=== PATIENT | female | born 1940 | race Caucasian/White ===

== ENCOUNTER 2016-08-30 16:45 | Inpatient (IN) | payer MEDICARE, OTHER ==
[~2016-08-30] VITALS: Ht 154.9 cm; Wt 68.1 kg
[2016-08-30 16:45] VITALS: BP 133/81
[2016-08-30] MEDS ORDERED: ONDANSETRON ODT 4 MG PO PRN (18:30)
[2016-08-30] MEDS ORDERED: ONDANSETRON 2MG/ML, 2ML IVPush PRN (18:30)
[2016-08-30] MEDS ORDERED: ACETAMINOPHEN 325 MG TABLET PO PRN (18:30)
[2016-08-30] MEDS ORDERED: LABETALOL 5MG/ML, 20ML IVPush PRN (18:30)
[2016-08-30] MEDS ORDERED: DOCUSATE 100 MG CAPSULE PO PRN (18:30)
[2016-08-30] MEDS ORDERED: ALBUTEROL/IPRATROPIUM 2.5MG/0.5MG, 3 ML NEB PRN (18:30)
[2016-08-30 18:59] VITALS: BP 125/72
[2016-08-30 19:49] LABS: ASPARTATE AMINO TRANSFERASE 27 U/L (15-37); BLOOD UREA NITROGEN 13 mg/dL (7-18)
[2016-08-30 20:19] LABS: DIFF TOTAL CELLS COUNTED 100 CELL DIFF
[2016-08-30 20:21] LABS: VERIFY COUNTS? YES
[2016-08-30 20:23] LABS: ANISOCYTOSIS 1+; POLYCHROMASIA 1+
[2016-08-30] MEDS: MEROPENEM 1 GM in SODIUM CHLORIDE 0.9% 100 ML IV SCH (22:03)
[2016-08-30] MEDS: HYDROcodone/APAP 5/325 TABLET PO PRN (22:13)
[2016-08-31] VITALS (7 sets, daily range): BP systolic 108–127; BP diastolic 56–77
[2016-08-31] MEDS: MEROPENEM 1 GM in SODIUM CHLORIDE 0.9% 100 ML IV SCH ×3 (05:36→22:11)
[2016-08-31] MEDS: CARVEDILOL 6.25 MG TABLET PO SCH ×2 (05:49→18:30)
[2016-08-31 06:10] LABS: ASPARTATE AMINO TRANSFERASE 25 U/L (15-37); BLOOD UREA NITROGEN 15 mg/dL (7-18)
[2016-08-31 07:23] LABS: DIFF TOTAL CELLS COUNTED 100 CELL DIFF
[2016-08-31 07:26] LABS: ANISOCYTOSIS 1+; POLYCHROMASIA 1+
[2016-08-31 07:27] LABS: VERIFY COUNTS? YES
[2016-08-31] MEDS ORDERED: MAGNESIUM SULFATE PMX 4GM/100M 100 ML IV ONE (08:00)
[2016-08-31] MEDS: TRIAMTERENE-HCTZ 37.5/25 MG TABLET PO SCH (10:48)
[2016-08-31] MEDS: FLUTICASONE/VILANTEROL 100-25MCG/INH INH SCH (10:48)
[2016-08-31] MEDS ORDERED: EVACUATED CONTAINER IVPB ONE (20:30)
[2016-08-31] MEDS ORDERED: IMMUNE GLOBULIN IVPB ONE (20:30)
[2016-08-31] MEDS: HYDROcodone/APAP 5/325 TABLET PO PRN (20:53)
[2016-09-01] VITALS (11 sets, daily range): BP systolic 107–146; BP diastolic 61–80
[2016-09-01] MEDS: HYDROcodone/APAP 5/325 TABLET PO PRN ×2 (03:17→20:12)
[2016-09-01] MEDS: CARVEDILOL 6.25 MG TABLET PO SCH ×2 (05:19→20:12)
[2016-09-01] MEDS: MEROPENEM 1 GM in SODIUM CHLORIDE 0.9% 100 ML IV SCH ×2 (05:19→16:43)
[2016-09-01 06:32] LABS: BLOOD UREA NITROGEN 14 mg/dL (7-18)
[2016-09-01 07:15] LABS: DIFF TOTAL CELLS COUNTED 100 CELL DIFF
[2016-09-01 07:17] LABS: ANISOCYTOSIS 1+; POLYCHROMASIA 1+; VERIFY COUNTS? YES
[2016-09-01] MEDS ORDERED: MAGNESIUM SULFATE PMX 4GM/100M 100 ML IV ONE (08:30)
[2016-09-01] MEDS: TRIAMTERENE-HCTZ 37.5/25 MG TABLET PO SCH (11:03)
[2016-09-01] MEDS: POTASSIUM CHLORIDE 20 MEQ TAB.ER.PRT PO SCH ×2 (11:03→16:49)
[2016-09-01] MEDS: FLUTICASONE/VILANTEROL 100-25MCG/INH INH SCH (11:04)
[2016-09-01] MEDS: FERROUS SULFATE 325 MG TABLET PO SCH ×2 (16:49→20:12)
[2016-09-01 17:32] LABS: DIFF TOTAL CELLS COUNTED 100 CELL DIFF
[2016-09-01 17:39] LABS: ANISOCYTOSIS 1+; POLYCHROMASIA 1+
[2016-09-01 17:40] LABS: VERIFY COUNTS? YES
[2016-09-02] VITALS (9 sets, daily range): BP systolic 115–146; BP diastolic 70–82
[2016-09-02] MEDS: MEROPENEM 1 GM in SODIUM CHLORIDE 0.9% 100 ML IV SCH ×3 (00:48→16:51)
[2016-09-02] MEDS: HYDROcodone/APAP 5/325 TABLET PO PRN ×2 (01:36→21:41)
[2016-09-02] MEDS: CARVEDILOL 6.25 MG TABLET PO SCH ×2 (06:13→18:31)
[2016-09-02 06:54] LABS: BLOOD UREA NITROGEN 16 mg/dL (7-18)
[2016-09-02] MEDS: TRIAMTERENE-HCTZ 37.5/25 MG TABLET PO SCH (09:11)
[2016-09-02] MEDS: FERROUS SULFATE 325 MG TABLET PO SCH ×3 (09:11→21:41)
[2016-09-02] MEDS: FLUTICASONE/VILANTEROL 100-25MCG/INH INH SCH (09:11)
[2016-09-02] MEDS: morphine SULFATE 10 MG/ML, 1ML IVPush PRN (11:35)
[2016-09-02 14:56] LABS: DIFF TOTAL CELLS COUNTED 100 CELL DIFF
[2016-09-02 15:38] LABS: ANISOCYTOSIS 1+; POLYCHROMASIA 1+; VERIFY COUNTS? YES
[2016-09-02] MEDS: PANTOPROZOLE 40MG TABLET PO SCH (16:51)
[2016-09-02] MEDS ORDERED: OMNIPAQUE 350 MG/ML, 100ML BOTTLE ONE (21:43)
[2016-09-03] VITALS (8 sets, daily range): BP systolic 108–130; BP diastolic 60–92
[2016-09-03] MEDS: MEROPENEM 1 GM in SODIUM CHLORIDE 0.9% 100 ML IV SCH ×3 (00:36→20:14)
[2016-09-03 04:52] LABS: BLOOD UREA NITROGEN 16 mg/dL (7-18)
[2016-09-03 05:41] LABS: DIFF TOTAL CELLS COUNTED 100 CELL DIFF
[2016-09-03 05:46] LABS: ANISOCYTOSIS 1+; VERIFY COUNTS? YES
[2016-09-03 05:47] LABS: POLYCHROMASIA 1+
[2016-09-03] MEDS: CARVEDILOL 6.25 MG TABLET PO SCH ×2 (06:00→17:24)
[2016-09-03] MEDS ORDERED: EVACUATED CONTAINER IVPB ONE (07:00)
[2016-09-03] MEDS ORDERED: IMMUNE GLOBULIN IVPB ONE (07:00)
[2016-09-03 07:29] LABS: DIFF TOTAL CELLS COUNTED 200 CELL DIFF; VERIFY COUNTS? YES
[2016-09-03 07:31] LABS: ANISOCYTOSIS 1+; POLYCHROMASIA 1+
[2016-09-03] MEDS: PANTOPROZOLE 40MG TABLET PO SCH (08:31)
[2016-09-03] MEDS: FLUTICASONE/VILANTEROL 100-25MCG/INH INH SCH (08:31)
[2016-09-03] MEDS: FERROUS SULFATE 325 MG TABLET PO SCH ×3 (08:31→20:14)
[2016-09-03] MEDS: DEXAMETHASONE 4 MG TABLET PO SCH (08:31)
[2016-09-03] MEDS: TRIAMTERENE-HCTZ 37.5/25 MG TABLET PO SCH (08:31)
[2016-09-03] MEDS ORDERED: LIDOCAINE 1%, 20ML ONE (08:59)
[2016-09-03] MEDS ORDERED: FENTANYL PF 100 MCG/2ML ONE ×2 (09:03→13:08)
[2016-09-03] MEDS ORDERED: MIDAZOLAM 1 MG/ML, 5ML ONE ×2 (09:03→13:08)
[2016-09-03] MEDS ORDERED: FLUMAZENIL 0.1 MG/1 ML, 5ML ONE (09:04)
[2016-09-03] MEDS ORDERED: NALOXONE 1 MG/ML, 2ML ONE (09:04)
[2016-09-03 13:06] LABS: ANA DIRECT Negative (Negative); COMPLEMENT C3 200 mg/dL (82-167); COMPLEMENT C4 22 mg/dL (14-44); INTERMYOFIBRILLAR AB Negative (Neg:<1:20); MITOCHONDRIAL (M2) AB 7.4 Units (0.0-20.0); PARIETAL CELL AB 5.3 Units (0.0-20.0); RA LATEX TURBIDITY <10.0 IU/mL (0.0-13.9); SARCOLEMMA AB Negative (Neg:<1:20); SJOGREN'S SS-A AB <0.2 AI (0.0-0.9); STRIATION AB Negative (Neg:<1:40); THYROID PEROXIDASE (TPO) AB 15 IU/mL (0-34)
[2016-09-03] MEDS: HYDROcodone/APAP 5/325 TABLET PO PRN (20:18)
[2016-09-04 00:01] VITALS: BP 124/74
[2016-09-04] MEDS: HYDROcodone/APAP 5/325 TABLET PO PRN ×2 (00:24→20:10)
[2016-09-04] MEDS: MEROPENEM 1 GM in SODIUM CHLORIDE 0.9% 100 ML IV SCH ×3 (04:20→20:11)
[2016-09-04 05:00] LABS: BLOOD UREA NITROGEN 25 mg/dL (7-18)
[2016-09-04] MEDS: CARVEDILOL 6.25 MG TABLET PO SCH ×2 (05:30→16:54)
[2016-09-04 05:37] LABS: DIFF TOTAL CELLS COUNTED 100 CELL DIFF
[2016-09-04 05:41] LABS: ANISOCYTOSIS 1+; POLYCHROMASIA 1+; VERIFY COUNTS? YES
[2016-09-04 07:34] VITALS: BP 122/69
[2016-09-04] MEDS: SODIUM CHLORIDE 0.9% 1,000 ML IV SCH ×2 (08:29→20:14)
[2016-09-04] MEDS: PANTOPROZOLE 40MG TABLET PO SCH (08:30)
[2016-09-04] MEDS: FLUTICASONE/VILANTEROL 100-25MCG/INH INH SCH (08:30)
[2016-09-04] MEDS: DEXAMETHASONE 4 MG TABLET PO SCH (08:31)
[2016-09-04] MEDS: TRIAMTERENE-HCTZ 37.5/25 MG TABLET PO SCH (08:31)
[2016-09-04] MEDS: FERROUS SULFATE 325 MG TABLET PO SCH ×3 (08:31→20:10)
[2016-09-04 13:45] VITALS: BP 125/71
[2016-09-04] MEDS: morphine SULFATE 10 MG/ML, 1ML IVPush PRN (14:20)
[2016-09-04 20:17] VITALS: BP 130/74
[2016-09-05] VITALS (9 sets, daily range): BP systolic 114–129; BP diastolic 64–74
[2016-09-05] MEDS: HYDROcodone/APAP 5/325 TABLET PO PRN ×2 (00:51→23:12)
[2016-09-05 01:56] LABS: OCCBLD OBC PASS
[2016-09-05] MEDS: MEROPENEM 1 GM in SODIUM CHLORIDE 0.9% 100 ML IV SCH ×3 (03:30→21:08)
[2016-09-05 03:51] LABS: BLOOD UREA NITROGEN 27 mg/dL (7-18)
[2016-09-05 04:26] LABS: DIFF TOTAL CELLS COUNTED 100 CELL DIFF
[2016-09-05 04:28] LABS: ANISOCYTOSIS 1+; MICROCYTOSIS 1+; POLYCHROMASIA 1+
[2016-09-05 04:29] LABS: LARGE PLATELETS 1+; VERIFY COUNTS? YES
[2016-09-05] MEDS: CARVEDILOL 6.25 MG TABLET PO SCH ×2 (06:00→19:04)
[2016-09-05] MEDS: PANTOPROZOLE 40MG TABLET PO SCH (08:04)
[2016-09-05] MEDS: TRIAMTERENE-HCTZ 37.5/25 MG TABLET PO SCH (09:00)
[2016-09-05] MEDS: DEXAMETHASONE 4 MG TABLET PO SCH (09:00)
[2016-09-05] MEDS: FERROUS SULFATE 325 MG TABLET PO SCH ×3 (09:00→21:08)
[2016-09-05] MEDS ORDERED: ACETAMINOPHEN 325 MG TABLET PO ONE (09:30)
[2016-09-05] MEDS ORDERED: DIPHENHYDRAMINE 25 MG CAPSULE PO ONE (09:30)
[2016-09-05] MEDS: FLUTICASONE/VILANTEROL 100-25MCG/INH INH SCH (10:55)
[2016-09-05] MEDS: morphine SULFATE 10 MG/ML, 1ML IVPush PRN (13:10)
[2016-09-05] MEDS ORDERED: FENTANYL PF 100 MCG/2ML ONE (14:38)
[2016-09-05] MEDS ORDERED: LIDOCAINE 2%, 20ML ONE (14:38)
[2016-09-05] MEDS ORDERED: NALOXONE 1 MG/ML, 2ML ONE (14:39)
[2016-09-05] MEDS: SODIUM CHLORIDE 0.9% 1,000 ML IV SCH (15:00)
[2016-09-05] MEDS ORDERED: MIDAZOLAM 1 MG/ML, 5ML ONE (15:16)
[2016-09-06 02:20] VITALS: BP 126/65
[2016-09-06] MEDS: HYDROcodone/APAP 5/325 TABLET PO PRN (04:03)
[2016-09-06] MEDS: CARVEDILOL 6.25 MG TABLET PO SCH ×2 (05:22→18:13)
[2016-09-06] MEDS: MEROPENEM 1 GM in SODIUM CHLORIDE 0.9% 100 ML IV SCH ×3 (05:23→22:30)
[2016-09-06 05:55] LABS: BLOOD UREA NITROGEN 33 mg/dL (7-18)
[2016-09-06 05:58] LABS: ASPARTATE AMINO TRANSFERASE 98 U/L (15-37)
[2016-09-06 06:23] LABS: DIFF TOTAL CELLS COUNTED 100 CELL DIFF
[2016-09-06 06:24] LABS: ANISOCYTOSIS 1+; VERIFY COUNTS? YES
[2016-09-06 06:25] LABS: LARGE PLATELETS 1+; POLYCHROMASIA 1+
[2016-09-06 07:52] VITALS: BP 111/70
[2016-09-06] MEDS: FERROUS SULFATE 325 MG TABLET PO SCH ×3 (09:20→22:30)
[2016-09-06] MEDS: FLUTICASONE/VILANTEROL 100-25MCG/INH INH SCH (09:20)
[2016-09-06] MEDS: PANTOPROZOLE 40MG TABLET PO SCH (09:20)
[2016-09-06] MEDS: TRIAMTERENE-HCTZ 37.5/25 MG TABLET PO SCH (09:21)
[2016-09-06] MEDS ORDERED: MAGNESIUM SULFATE PMX 2GM/50ML 50 ML IV ONE (11:30)
[2016-09-06 12:52] VITALS: BP 122/71
[2016-09-06] MEDS: SODIUM CHLORIDE 0.9% 1,000 ML IV SCH (13:54)
[2016-09-06 19:59] VITALS: BP 122/69
[2016-09-06] MEDS: OXYcodone IR 5MG TABLET PO PRN (22:30)
[2016-09-07 01:47] VITALS: BP 127/71
[2016-09-07] MEDS: SODIUM CHLORIDE 0.9% 1,000 ML IV SCH (05:01)
[2016-09-07 05:50] LABS: ASPARTATE AMINO TRANSFERASE 43 U/L (15-37); BLOOD UREA NITROGEN 18 mg/dL (7-18)
[2016-09-07] MEDS: CARVEDILOL 6.25 MG TABLET PO SCH ×2 (06:00→17:58)
[2016-09-07] MEDS: MEROPENEM 1 GM in SODIUM CHLORIDE 0.9% 100 ML IV SCH ×3 (06:17→21:31)
[2016-09-07 07:12] VITALS: BP 134/62
[2016-09-07] MEDS: FERROUS SULFATE 325 MG TABLET PO SCH ×3 (07:23→21:31)
[2016-09-07] MEDS: TRIAMTERENE-HCTZ 37.5/25 MG TABLET PO SCH (07:23)
[2016-09-07] MEDS: PANTOPROZOLE 40MG TABLET PO SCH (07:24)
[2016-09-07] MEDS: FLUTICASONE/VILANTEROL 100-25MCG/INH INH SCH (07:24)
[2016-09-07] MEDS ORDERED: POTASSIUM CHLORIDE 20 MEQ TAB.ER.PRT PO ONE (08:00)
[2016-09-07] MEDS: OXYcodone IR 5MG TABLET PO PRN (09:34)
[2016-09-07 13:35] VITALS: BP 131/71
[2016-09-07] MEDS: MICAFUNGIN 100 MG in SODIUM CHLORIDE 0.9% 100 ML IV SCH (15:06)
[2016-09-07] MEDS ORDERED: MAGNESIUM SULFATE PMX 4GM/100M 100 ML IV ONE (15:30)
[2016-09-07 19:17] VITALS: BP 119/67
[2016-09-08] MEDS: SODIUM CHLORIDE 0.9% 1,000 ML IV SCH ×2 (00:41→21:38)
[2016-09-08] MEDS: OXYcodone IR 5MG TABLET PO PRN ×2 (00:41→23:35)
[2016-09-08 00:53] VITALS: BP 105/60
[2016-09-08 05:16] LABS: ASPARTATE AMINO TRANSFERASE 27 U/L (15-37); BLOOD UREA NITROGEN 16 mg/dL (7-18)
[2016-09-08] MEDS: MEROPENEM 1 GM in SODIUM CHLORIDE 0.9% 100 ML IV SCH ×3 (05:20→18:20)
[2016-09-08] MEDS: CARVEDILOL 6.25 MG TABLET PO SCH ×2 (05:20→18:20)
[2016-09-08] MEDS: FERROUS SULFATE 325 MG TABLET PO SCH ×3 (08:29→21:36)
[2016-09-08] MEDS: FLUTICASONE/VILANTEROL 100-25MCG/INH INH SCH (08:30)
[2016-09-08] MEDS: TRIAMTERENE-HCTZ 37.5/25 MG TABLET PO SCH (08:30)
[2016-09-08] MEDS ORDERED: POTASSIUM PHOSPHATE 22 MEQ in SODIUM CHLORIDE 0.9% 500 ML IV ONE (08:30)
[2016-09-08] MEDS: PANTOPROZOLE 40MG TABLET PO SCH (08:35)
[2016-09-08 08:38] VITALS: BP 122/63
[2016-09-08] MEDS: MICAFUNGIN 100 MG in SODIUM CHLORIDE 0.9% 100 ML IV SCH (14:23)
[2016-09-08 15:32] VITALS: BP 135/72
[2016-09-08 20:17] VITALS: BP 122/70
[2016-09-09] MEDS: MEROPENEM 1 GM in SODIUM CHLORIDE 0.9% 100 ML IV SCH ×3 (01:53→18:32)
[2016-09-09 02:31] VITALS: BP 128/72
[2016-09-09 03:52] LABS: BLOOD UREA NITROGEN 11 mg/dL (7-18)
[2016-09-09] MEDS: CARVEDILOL 6.25 MG TABLET PO SCH ×2 (05:35→17:28)
[2016-09-09] MEDS ORDERED: POTASSIUM CHLORIDE 20 MEQ TAB.ER.PRT PO ONE (07:30)
[2016-09-09] MEDS: FERROUS SULFATE 325 MG TABLET PO SCH ×3 (08:29→20:27)
[2016-09-09] MEDS: FLUTICASONE/VILANTEROL 100-25MCG/INH INH SCH (08:29)
[2016-09-09] MEDS: PANTOPROZOLE 40MG TABLET PO SCH (08:29)
[2016-09-09] MEDS: TRIAMTERENE-HCTZ 37.5/25 MG TABLET PO SCH (08:29)
[2016-09-09 08:34] VITALS: BP 120/72
[2016-09-09] MEDS: OXYcodone IR 5MG TABLET PO PRN (10:32)
[2016-09-09] MEDS: FLUCONAZOLE 200 MG TABLET PO SCH (12:44)
[2016-09-09 15:53] VITALS: BP 128/79
[2016-09-09] MEDS ORDERED: POTASSIUM PHOSPHATE 22 MEQ in SODIUM CHLORIDE 0.9% 500 ML IV ONE (17:30)
[2016-09-09 19:15] VITALS: BP 117/70
[2016-09-10] MEDS: OXYcodone IR 5MG TABLET PO PRN (00:42)
[2016-09-10 01:06] VITALS: BP 114/71
[2016-09-10] MEDS: MEROPENEM 1 GM in SODIUM CHLORIDE 0.9% 100 ML IV SCH ×2 (01:55→10:37)
[2016-09-10 02:31] LABS: BLOOD UREA NITROGEN 10 mg/dL (7-18)
[2016-09-10] MEDS: CARVEDILOL 6.25 MG TABLET PO SCH (05:11)
[2016-09-10 07:01] VITALS: BP 105/67
[2016-09-10] MEDS: PANTOPROZOLE 40MG TABLET PO SCH (10:36)
[2016-09-10] MEDS: FLUCONAZOLE 200 MG TABLET PO SCH (10:37)
[2016-09-10] MEDS: FERROUS SULFATE 325 MG TABLET PO SCH (10:37)
[2016-09-10] MEDS: FLUTICASONE/VILANTEROL 100-25MCG/INH INH SCH (10:37)
[2016-09-10] MEDS ORDERED: PANT40TA5 PO (12:49)
[2016-09-10] MEDS ORDERED: CARV6.2512 PO (12:49)
[2016-09-10] MEDS ORDERED: FLUT1AER INH (12:49)
[2016-09-10] MEDS ORDERED: FERR325T20 PO (12:49)
[2016-09-10] MEDS ORDERED: FLUC200T PO (12:49)
[2016-09-10] MEDS ORDERED: MERO1VIA15 IVPB (12:51)
[2016-09-10 13:37] VITALS: BP 136/84
== END 2016-09-10 15:40 | DRG 813 ==
LOC: 3NW 17:28
PROVIDERS: ADMIT Internal Medicine; ATTEND Internal Medicine
PROC: 30233R1 Transfusion of Nonautologous Platelets into Peripheral Vein, Percutaneous Approach (ICD-10-PCS; 2016-08-31)
PROC: 30233N1 Transfusion of Nonautologous Red Blood Cells into Peripheral Vein, Percutaneous Approach (ICD-10-PCS; 2016-08-31)
PROC: 07DR3ZX Extraction of Iliac Bone Marrow, Percutaneous Approach, Diagnostic (ICD-10-PCS; principal; 2016-09-03)
PROC: 0W9G30Z Drainage of Peritoneal Cavity with Drainage Device, Percutaneous Approach (ICD-10-PCS; 2016-09-05)
DX: D69.3 Immune thrombocytopenic purpura (principal); E43 Unspecified severe protein-calorie malnutrition; E87.1 Hypo-osmolality and hyponatremia; I47.1 Supraventricular tachycardia; J98.11 Atelectasis; R18.8 Other ascites; M54.5 Low back pain; D69.6 Thrombocytopenia, unspecified; B37.9 Candidiasis, unspecified; I48.0 Paroxysmal atrial fibrillation; D50.9 Iron deficiency anemia, unspecified; D63.8 Anemia in other chronic diseases classified elsewhere; E78.00 Pure hypercholesterolemia, unspecified; E78.5 Hyperlipidemia, unspecified; E83.39 Other disorders of phosphorus metabolism; E83.42 Hypomagnesemia; E87.6 Hypokalemia; I10 Essential (primary) hypertension; J45.909 Unspecified asthma, uncomplicated; Z79.2 Long term (current) use of antibiotics; Z80.1 Family history of malignant neoplasm of trachea, bronchus and lung; Z82.49 Family history of ischemic heart disease and other diseases of the circulatory system; Z82.5 Family history of asthma and other chronic lower respiratory diseases; Z90.49 Acquired absence of other specified parts of digestive tract; Z93.3 Colostomy status; Z68.28 Body mass index [BMI] 28.0-28.9, adult
CPT/HCPCS: 36415; 49405; 49406; 74177; 76770; 76830; 77012; 80048; 80053; 81001; 82040; 82272; 82607; 82728; 82746; 83516; 83540; 83550; 83615; 83735; 84100; 85025; 85049; 85097; 85384; 85610; 85651; 85730; 86038; 86160; 86225; 86235; 86255; 86256; 86376; 86431; 86850; 86900; 86923; 87070; 87106; 87205; 88237; 88264; 88280; 88305; 88311; 88313; 93005; 99156; 99157; G0364; J1459; J2185; J2248; J2250; J3010; J3490; Q9967; C1729; C1769; J2270; J2310; J3475; J7030; J7040; P9016; P9035; Q0163

== ENCOUNTER → 2016-10-21 | Outpatient (CLI) | payer OTHER, MEDICARE ==
[~2016-10-21] MED LIST: CARV6.2512 PO; FERR325T20 PO; FLUC200T PO; FLUT1AER INH; MERO1VIA15 IVPB; PANT40TA5 PO
== END | disposition home or self-care (01) ==
LOC: WOUND 09:12
PROVIDERS: ATTEND Physician Assistant
DX: T81.31XA Disruption of external operation (surgical) wound, not elsewhere classified, initial encounter (principal); Z93.2 Ileostomy status; Z86.718 Personal history of other venous thrombosis and embolism; E78.5 Hyperlipidemia, unspecified; J45.909 Unspecified asthma, uncomplicated; Z86.73 Personal history of transient ischemic attack (TIA), and cerebral infarction without residual deficits; E78.00 Pure hypercholesterolemia, unspecified; E43 Unspecified severe protein-calorie malnutrition; I48.0 Paroxysmal atrial fibrillation; Y92.89 Other specified places as the place of occurrence of the external cause; Y83.8 Other surgical procedures as the cause of abnormal reaction of the patient, or of later complication, without mention of misadventure at the time of the procedure; Z79.2 Long term (current) use of antibiotics
CPT/HCPCS: 97597; 99215

== ENCOUNTER → 2016-11-04 | Outpatient (CLI) | payer OTHER, MEDICARE ==
[~2016-11-04] MED LIST changes: +FERR325T18 PO; -FERR325T20 PO
== END | disposition home or self-care (01) ==
LOC: WOUND 09:05
PROVIDERS: ATTEND Physician Assistant
DX: T81.31XD Disruption of external operation (surgical) wound, not elsewhere classified, subsequent encounter (principal); J45.909 Unspecified asthma, uncomplicated; I48.0 Paroxysmal atrial fibrillation; E78.00 Pure hypercholesterolemia, unspecified; Z93.2 Ileostomy status; Z86.718 Personal history of other venous thrombosis and embolism; Z86.73 Personal history of transient ischemic attack (TIA), and cerebral infarction without residual deficits; Y83.8 Other surgical procedures as the cause of abnormal reaction of the patient, or of later complication, without mention of misadventure at the time of the procedure
CPT/HCPCS: 17250

== ENCOUNTER → 2016-11-18 | Outpatient (CLI) | payer OTHER, MEDICARE | END | disposition home or self-care (01) | LOC: WOUND 09:06 | PROVIDERS: ATTEND Physician Assistant | DX: T81.31XD Disruption of external operation (surgical) wound, not elsewhere classified, subsequent encounter (principal); J45.909 Unspecified asthma, uncomplicated; I48.0 Paroxysmal atrial fibrillation; E78.00 Pure hypercholesterolemia, unspecified; Z86.718 Personal history of other venous thrombosis and embolism; Z93.2 Ileostomy status; Z86.73 Personal history of transient ischemic attack (TIA), and cerebral infarction without residual deficits; Y83.8 Other surgical procedures as the cause of abnormal reaction of the patient, or of later complication, without mention of misadventure at the time of the procedure | CPT/HCPCS: 17250 ==

== ENCOUNTER → 2016-12-06 | Outpatient (CLI) | payer OTHER, MEDICARE | END | disposition home or self-care (01) | LOC: WOUND 08:47 | PROVIDERS: ATTEND Physician Assistant | DX: T81.31XD Disruption of external operation (surgical) wound, not elsewhere classified, subsequent encounter (principal); E78.5 Hyperlipidemia, unspecified; J45.909 Unspecified asthma, uncomplicated; I48.0 Paroxysmal atrial fibrillation; Z86.73 Personal history of transient ischemic attack (TIA), and cerebral infarction without residual deficits; Z93.2 Ileostomy status; E78.00 Pure hypercholesterolemia, unspecified; Z86.718 Personal history of other venous thrombosis and embolism; Y83.8 Other surgical procedures as the cause of abnormal reaction of the patient, or of later complication, without mention of misadventure at the time of the procedure | CPT/HCPCS: 99213 ==

== ENCOUNTER → 2016-12-11 | Outpatient (CLI) | payer OTHER, MEDICARE | END | disposition home or self-care (01) | LOC: WOUND 14:45 | PROVIDERS: ATTEND Specialist | DX: T81.31XD Disruption of external operation (surgical) wound, not elsewhere classified, subsequent encounter (principal); E78.5 Hyperlipidemia, unspecified; I48.0 Paroxysmal atrial fibrillation; Z86.718 Personal history of other venous thrombosis and embolism; Z86.73 Personal history of transient ischemic attack (TIA), and cerebral infarction without residual deficits; E78.00 Pure hypercholesterolemia, unspecified; J45.909 Unspecified asthma, uncomplicated; Y83.8 Other surgical procedures as the cause of abnormal reaction of the patient, or of later complication, without mention of misadventure at the time of the procedure | CPT/HCPCS: 99213 ==

== ENCOUNTER → 2016-12-20 | Outpatient (CLI) | payer OTHER, MEDICARE | END | disposition home or self-care (01) | LOC: WOUND 08:48 | PROVIDERS: ATTEND Physician Assistant | DX: T81.31XA Disruption of external operation (surgical) wound, not elsewhere classified, initial encounter (principal); L98.491 Non-pressure chronic ulcer of skin of other sites limited to breakdown of skin; I48.0 Paroxysmal atrial fibrillation; Z86.718 Personal history of other venous thrombosis and embolism; Z86.73 Personal history of transient ischemic attack (TIA), and cerebral infarction without residual deficits; E78.00 Pure hypercholesterolemia, unspecified; J45.909 Unspecified asthma, uncomplicated; Y92.89 Other specified places as the place of occurrence of the external cause; Y83.8 Other surgical procedures as the cause of abnormal reaction of the patient, or of later complication, without mention of misadventure at the time of the procedure | CPT/HCPCS: 99214 ==

== ENCOUNTER → 2016-12-27 | Outpatient (CLI) | payer OTHER, MEDICARE | END | disposition home or self-care (01) | LOC: WOUND 09:00 | PROVIDERS: ATTEND Physician Assistant | DX: T81.31XD Disruption of external operation (surgical) wound, not elsewhere classified, subsequent encounter (principal); L98.491 Non-pressure chronic ulcer of skin of other sites limited to breakdown of skin; I48.0 Paroxysmal atrial fibrillation; E78.5 Hyperlipidemia, unspecified; J45.909 Unspecified asthma, uncomplicated; Z86.718 Personal history of other venous thrombosis and embolism; Z86.73 Personal history of transient ischemic attack (TIA), and cerebral infarction without residual deficits; Z93.2 Ileostomy status; Y83.8 Other surgical procedures as the cause of abnormal reaction of the patient, or of later complication, without mention of misadventure at the time of the procedure | CPT/HCPCS: 97597 ==

== ENCOUNTER → 2017-01-17 | Outpatient (CLI) | payer OTHER, MEDICARE | END | disposition home or self-care (01) | LOC: WOUND 09:30 | PROVIDERS: ATTEND Family Medicine | DX: T81.31XD Disruption of external operation (surgical) wound, not elsewhere classified, subsequent encounter (principal); L98.491 Non-pressure chronic ulcer of skin of other sites limited to breakdown of skin; I48.0 Paroxysmal atrial fibrillation; Z86.718 Personal history of other venous thrombosis and embolism; Z86.73 Personal history of transient ischemic attack (TIA), and cerebral infarction without residual deficits; J45.909 Unspecified asthma, uncomplicated; E78.00 Pure hypercholesterolemia, unspecified; Y83.8 Other surgical procedures as the cause of abnormal reaction of the patient, or of later complication, without mention of misadventure at the time of the procedure | CPT/HCPCS: 99212 ==

== ENCOUNTER → 2017-02-24 | Outpatient (CLI) | payer OTHER, MEDICARE | END | disposition home or self-care (01) | LOC: WOUND 15:40 | PROVIDERS: ATTEND Internal Medicine | DX: T81.89XD Other complications of procedures, not elsewhere classified, subsequent encounter (principal); I48.0 Paroxysmal atrial fibrillation; E78.00 Pure hypercholesterolemia, unspecified; J45.909 Unspecified asthma, uncomplicated; Z86.718 Personal history of other venous thrombosis and embolism; Z86.73 Personal history of transient ischemic attack (TIA), and cerebral infarction without residual deficits; Y83.8 Other surgical procedures as the cause of abnormal reaction of the patient, or of later complication, without mention of misadventure at the time of the procedure | CPT/HCPCS: 99213 ==

== ENCOUNTER → 2017-02-28 | Outpatient (CLI) | payer OTHER, MEDICARE | END | disposition home or self-care (01) | LOC: WOUND 08:48 | PROVIDERS: ATTEND Family Medicine | DX: T81.89XD Other complications of procedures, not elsewhere classified, subsequent encounter (principal); I48.0 Paroxysmal atrial fibrillation; E78.00 Pure hypercholesterolemia, unspecified; J45.909 Unspecified asthma, uncomplicated; Z86.718 Personal history of other venous thrombosis and embolism; Z86.73 Personal history of transient ischemic attack (TIA), and cerebral infarction without residual deficits; Y83.8 Other surgical procedures as the cause of abnormal reaction of the patient, or of later complication, without mention of misadventure at the time of the procedure | CPT/HCPCS: 99213 ==

== ENCOUNTER → 2017-03-07 | Outpatient (CLI) | payer OTHER, MEDICARE | END | disposition home or self-care (01) | LOC: WOUND 09:30 | PROVIDERS: ATTEND Family Medicine | DX: T81.31XA Disruption of external operation (surgical) wound, not elsewhere classified, initial encounter (principal); I48.0 Paroxysmal atrial fibrillation; E78.00 Pure hypercholesterolemia, unspecified; J45.909 Unspecified asthma, uncomplicated; Z86.718 Personal history of other venous thrombosis and embolism; Z86.73 Personal history of transient ischemic attack (TIA), and cerebral infarction without residual deficits; Y83.8 Other surgical procedures as the cause of abnormal reaction of the patient, or of later complication, without mention of misadventure at the time of the procedure | CPT/HCPCS: 99214 ==

== ENCOUNTER → 2017-03-14 | Outpatient (CLI) | payer OTHER, MEDICARE | END | disposition home or self-care (01) | LOC: WOUND 09:30 | PROVIDERS: ATTEND Family Medicine | DX: T81.31XD Disruption of external operation (surgical) wound, not elsewhere classified, subsequent encounter (principal); I48.0 Paroxysmal atrial fibrillation; E78.00 Pure hypercholesterolemia, unspecified; J45.909 Unspecified asthma, uncomplicated; Z86.718 Personal history of other venous thrombosis and embolism; Z86.73 Personal history of transient ischemic attack (TIA), and cerebral infarction without residual deficits; Y83.8 Other surgical procedures as the cause of abnormal reaction of the patient, or of later complication, without mention of misadventure at the time of the procedure | CPT/HCPCS: 97605; 99212 ==

== ENCOUNTER → 2017-03-17 | Outpatient (CLI) | payer OTHER, MEDICARE | END | disposition home or self-care (01) | LOC: WOUND 13:13 | PROVIDERS: ATTEND Internal Medicine | DX: T81.31XD Disruption of external operation (surgical) wound, not elsewhere classified, subsequent encounter (principal); E78.5 Hyperlipidemia, unspecified; J45.909 Unspecified asthma, uncomplicated; I48.0 Paroxysmal atrial fibrillation; E78.00 Pure hypercholesterolemia, unspecified; Z86.718 Personal history of other venous thrombosis and embolism; Y83.8 Other surgical procedures as the cause of abnormal reaction of the patient, or of later complication, without mention of misadventure at the time of the procedure | CPT/HCPCS: 97597 ==

== ENCOUNTER → 2017-03-19 | Outpatient (CLI) | payer OTHER, MEDICARE | END | disposition home or self-care (01) | LOC: WOUND 08:29 | PROVIDERS: ATTEND Internal Medicine | DX: T81.31XA Disruption of external operation (surgical) wound, not elsewhere classified, initial encounter (principal); E78.5 Hyperlipidemia, unspecified; E78.00 Pure hypercholesterolemia, unspecified; J45.909 Unspecified asthma, uncomplicated; Z86.718 Personal history of other venous thrombosis and embolism; X58.XXXA Exposure to other specified factors, initial encounter; Y93.89 Activity, other specified; Y92.89 Other specified places as the place of occurrence of the external cause; Y99.8 Other external cause status | CPT/HCPCS: 97605 ==

== ENCOUNTER → 2017-03-21 | Outpatient (CLI) | payer OTHER, MEDICARE | END | disposition home or self-care (01) | LOC: WOUND 10:42 | PROVIDERS: ATTEND Internal Medicine Cardiovascular Disease | DX: T81.31XD Disruption of external operation (surgical) wound, not elsewhere classified, subsequent encounter (principal); E78.5 Hyperlipidemia, unspecified; E78.00 Pure hypercholesterolemia, unspecified; J45.909 Unspecified asthma, uncomplicated; I48.0 Paroxysmal atrial fibrillation; Z86.718 Personal history of other venous thrombosis and embolism; Z86.73 Personal history of transient ischemic attack (TIA), and cerebral infarction without residual deficits; Y83.8 Other surgical procedures as the cause of abnormal reaction of the patient, or of later complication, without mention of misadventure at the time of the procedure | CPT/HCPCS: 97605 ==

== ENCOUNTER → 2017-03-24 | Outpatient (CLI) | payer OTHER, MEDICARE | END | disposition home or self-care (01) | LOC: WOUND 10:45 | PROVIDERS: ATTEND Internal Medicine | DX: T81.31XD Disruption of external operation (surgical) wound, not elsewhere classified, subsequent encounter (principal); Y83.8 Other surgical procedures as the cause of abnormal reaction of the patient, or of later complication, without mention of misadventure at the time of the procedure; E78.5 Hyperlipidemia, unspecified; I48.0 Paroxysmal atrial fibrillation; J45.909 Unspecified asthma, uncomplicated; E78.00 Pure hypercholesterolemia, unspecified; Z86.718 Personal history of other venous thrombosis and embolism; Z86.73 Personal history of transient ischemic attack (TIA), and cerebral infarction without residual deficits | CPT/HCPCS: 97597 ==

== ENCOUNTER → 2017-03-26 | Outpatient (CLI) | payer OTHER, MEDICARE | END | disposition home or self-care (01) | LOC: WOUND 09:28 | PROVIDERS: ATTEND Internal Medicine | DX: T81.89XD Other complications of procedures, not elsewhere classified, subsequent encounter (principal); I48.0 Paroxysmal atrial fibrillation; E78.00 Pure hypercholesterolemia, unspecified; J45.909 Unspecified asthma, uncomplicated; Z86.718 Personal history of other venous thrombosis and embolism; Z86.73 Personal history of transient ischemic attack (TIA), and cerebral infarction without residual deficits; Y83.8 Other surgical procedures as the cause of abnormal reaction of the patient, or of later complication, without mention of misadventure at the time of the procedure | CPT/HCPCS: 97605 ==

== ENCOUNTER → 2017-03-28 | Outpatient (CLI) | payer OTHER, MEDICARE | END | disposition home or self-care (01) | LOC: WOUND 09:54 | PROVIDERS: ATTEND Family Medicine | DX: T81.31XD Disruption of external operation (surgical) wound, not elsewhere classified, subsequent encounter (principal); E78.5 Hyperlipidemia, unspecified; J45.909 Unspecified asthma, uncomplicated; I48.0 Paroxysmal atrial fibrillation; E78.00 Pure hypercholesterolemia, unspecified; Z86.73 Personal history of transient ischemic attack (TIA), and cerebral infarction without residual deficits; Z86.718 Personal history of other venous thrombosis and embolism; Y83.8 Other surgical procedures as the cause of abnormal reaction of the patient, or of later complication, without mention of misadventure at the time of the procedure | CPT/HCPCS: 97605 ==

== ENCOUNTER → 2017-03-31 | Outpatient (CLI) | payer OTHER, MEDICARE | END | disposition home or self-care (01) | LOC: WOUND 12:49 | PROVIDERS: ATTEND Internal Medicine | DX: T81.31XD Disruption of external operation (surgical) wound, not elsewhere classified, subsequent encounter (principal); I48.0 Paroxysmal atrial fibrillation; E78.00 Pure hypercholesterolemia, unspecified; J45.909 Unspecified asthma, uncomplicated; Z86.718 Personal history of other venous thrombosis and embolism; Z86.73 Personal history of transient ischemic attack (TIA), and cerebral infarction without residual deficits; Y83.8 Other surgical procedures as the cause of abnormal reaction of the patient, or of later complication, without mention of misadventure at the time of the procedure | CPT/HCPCS: 97597 ==

== ENCOUNTER → 2017-04-02 | Outpatient (CLI) | payer OTHER, MEDICARE | END | disposition home or self-care (01) | LOC: WOUND 11:15 | PROVIDERS: ATTEND Internal Medicine | DX: T81.31XD Disruption of external operation (surgical) wound, not elsewhere classified, subsequent encounter (principal); J45.909 Unspecified asthma, uncomplicated; I48.0 Paroxysmal atrial fibrillation; E78.00 Pure hypercholesterolemia, unspecified; Z86.718 Personal history of other venous thrombosis and embolism; Z86.73 Personal history of transient ischemic attack (TIA), and cerebral infarction without residual deficits; Y83.8 Other surgical procedures as the cause of abnormal reaction of the patient, or of later complication, without mention of misadventure at the time of the procedure | CPT/HCPCS: 97605 ==

== ENCOUNTER → 2017-04-04 | Outpatient (CLI) | payer OTHER, MEDICARE | END | disposition home or self-care (01) | LOC: WOUND 14:00 | PROVIDERS: ATTEND Family Medicine | DX: T81.31XD Disruption of external operation (surgical) wound, not elsewhere classified, subsequent encounter (principal); E78.5 Hyperlipidemia, unspecified; I48.0 Paroxysmal atrial fibrillation; J45.909 Unspecified asthma, uncomplicated; E78.00 Pure hypercholesterolemia, unspecified; Z86.718 Personal history of other venous thrombosis and embolism; Z86.73 Personal history of transient ischemic attack (TIA), and cerebral infarction without residual deficits; Y83.8 Other surgical procedures as the cause of abnormal reaction of the patient, or of later complication, without mention of misadventure at the time of the procedure | CPT/HCPCS: 97605 ==

== ENCOUNTER → 2017-04-07 | Outpatient (CLI) | payer OTHER, MEDICARE | END | disposition home or self-care (01) | LOC: WOUND 09:30 | PROVIDERS: ATTEND Internal Medicine | DX: T81.31XD Disruption of external operation (surgical) wound, not elsewhere classified, subsequent encounter (principal); J45.909 Unspecified asthma, uncomplicated; I48.0 Paroxysmal atrial fibrillation; E78.00 Pure hypercholesterolemia, unspecified; Z86.718 Personal history of other venous thrombosis and embolism; Z86.73 Personal history of transient ischemic attack (TIA), and cerebral infarction without residual deficits; Y83.8 Other surgical procedures as the cause of abnormal reaction of the patient, or of later complication, without mention of misadventure at the time of the procedure | CPT/HCPCS: 11042; 97605 ==

== ENCOUNTER → 2017-04-09 | Outpatient (CLI) | payer OTHER, MEDICARE | END | disposition home or self-care (01) | LOC: WOUND 07:51 | PROVIDERS: ATTEND Internal Medicine | DX: T81.31XD Disruption of external operation (surgical) wound, not elsewhere classified, subsequent encounter (principal); I48.0 Paroxysmal atrial fibrillation; E78.00 Pure hypercholesterolemia, unspecified; J45.909 Unspecified asthma, uncomplicated; E78.5 Hyperlipidemia, unspecified; Z86.718 Personal history of other venous thrombosis and embolism; Z86.73 Personal history of transient ischemic attack (TIA), and cerebral infarction without residual deficits; Y83.8 Other surgical procedures as the cause of abnormal reaction of the patient, or of later complication, without mention of misadventure at the time of the procedure | CPT/HCPCS: 97605 ==

== ENCOUNTER → 2017-04-11 | Outpatient (CLI) | payer OTHER, MEDICARE | END | disposition home or self-care (01) | LOC: WOUND 08:14 | PROVIDERS: ATTEND Family Medicine | DX: T81.31XD Disruption of external operation (surgical) wound, not elsewhere classified, subsequent encounter (principal); E78.5 Hyperlipidemia, unspecified; I48.0 Paroxysmal atrial fibrillation; J45.909 Unspecified asthma, uncomplicated; E78.00 Pure hypercholesterolemia, unspecified; Z86.718 Personal history of other venous thrombosis and embolism; Z86.73 Personal history of transient ischemic attack (TIA), and cerebral infarction without residual deficits; Y83.8 Other surgical procedures as the cause of abnormal reaction of the patient, or of later complication, without mention of misadventure at the time of the procedure | CPT/HCPCS: 97605 ==

== ENCOUNTER → 2017-04-14 | Outpatient (CLI) | payer OTHER, MEDICARE | END | disposition home or self-care (01) | LOC: WOUND 07:55 | PROVIDERS: ATTEND Internal Medicine | DX: T81.31XD Disruption of external operation (surgical) wound, not elsewhere classified, subsequent encounter (principal); E78.5 Hyperlipidemia, unspecified; I48.91 Unspecified atrial fibrillation; I48.0 Paroxysmal atrial fibrillation; E78.00 Pure hypercholesterolemia, unspecified; J45.909 Unspecified asthma, uncomplicated; Z86.718 Personal history of other venous thrombosis and embolism; Z86.73 Personal history of transient ischemic attack (TIA), and cerebral infarction without residual deficits; Y83.8 Other surgical procedures as the cause of abnormal reaction of the patient, or of later complication, without mention of misadventure at the time of the procedure | CPT/HCPCS: 97597 ==

== ENCOUNTER → 2017-04-23 | Outpatient (CLI) | payer OTHER, MEDICARE | END | disposition home or self-care (01) | LOC: WOUND 07:56 | PROVIDERS: ATTEND Internal Medicine | DX: T81.31XD Disruption of external operation (surgical) wound, not elsewhere classified, subsequent encounter (principal); E78.5 Hyperlipidemia, unspecified; I48.0 Paroxysmal atrial fibrillation; E78.00 Pure hypercholesterolemia, unspecified; J45.909 Unspecified asthma, uncomplicated; I48.91 Unspecified atrial fibrillation; Z86.718 Personal history of other venous thrombosis and embolism; Z86.73 Personal history of transient ischemic attack (TIA), and cerebral infarction without residual deficits; Y83.8 Other surgical procedures as the cause of abnormal reaction of the patient, or of later complication, without mention of misadventure at the time of the procedure | CPT/HCPCS: 97597 ==

== ENCOUNTER → 2017-04-30 | Outpatient (CLI) | payer OTHER, MEDICARE | END | disposition home or self-care (01) | LOC: WOUND 07:54 | PROVIDERS: ATTEND Internal Medicine | DX: T81.31XD Disruption of external operation (surgical) wound, not elsewhere classified, subsequent encounter (principal); I48.0 Paroxysmal atrial fibrillation; E78.00 Pure hypercholesterolemia, unspecified; J45.909 Unspecified asthma, uncomplicated; Z86.718 Personal history of other venous thrombosis and embolism; Z86.73 Personal history of transient ischemic attack (TIA), and cerebral infarction without residual deficits; Y83.8 Other surgical procedures as the cause of abnormal reaction of the patient, or of later complication, without mention of misadventure at the time of the procedure | CPT/HCPCS: 99214 ==

== ENCOUNTER → 2018-01-01 | Outpatient (CLI) | payer OTHER, MEDICARE | END | disposition home or self-care (01) | LOC: CFH 09:03 | PROVIDERS: ATTEND Nurse Practitioner Family | DX: Z13.820 Encounter for screening for osteoporosis (principal); M85.88 Other specified disorders of bone density and structure, other site | CPT/HCPCS: 77080 ==

== ENCOUNTER → 2018-06-05 | Outpatient (CLI) | payer OTHER, MEDICARE | END | disposition home or self-care (01) | LOC: CFH 07:19 | PROVIDERS: ATTEND Genetic Counselor, MS | DX: Z12.31 Encounter for screening mammogram for malignant neoplasm of breast (principal) | CPT/HCPCS: 77067 ==

== ENCOUNTER → 2020-05-08 | Outpatient (CLI) | payer MEDICARE, OTHER ==
[~2020-05-08] MED LIST changes: -MERO1VIA15 IVPB; +MERO1VIA24 IVPB; -PANT40TA5 PO; +PANT40TA6 PO
== END | disposition home or self-care (01) ==
LOC: CFH 08:49
PROVIDERS: ATTEND Genetic Counselor, MS
DX: Z12.31 Encounter for screening mammogram for malignant neoplasm of breast (principal); M85.88 Other specified disorders of bone density and structure, other site; M85.80 Other specified disorders of bone density and structure, unspecified site
CPT/HCPCS: 77063; 77067; 77080